=== PATIENT | female | born 1985 | race Caucasian/White ===

== ENCOUNTER → 2022-02-12 | Outpatient (CLI) | payer BC, MEDICAID, SELFPAY ==
--- NOTE | 2022-02-12 08:25 | CT_ITS ---
STUDY: CT PELVIS WITHOUT CONTRAST REASON FOR EXAM: Female, 36 years old. SACROCOCCYGEAL DISORDERS RADIATION DOSAGE (If Supplied By Facility): CTDIvol = ( 5.37 ) mGy, DLP = ( 170.50 ) mGycm TECHNIQUE: Transaxial imaging of the pelvis was performed with oral contrast, and without intravenous administration of contrast material. Individualized dose optimization techniques were used for this CT. COMPARISON: None. FINDINGS: Normal urinary bladder. There is a 4.9 cm x 4.3 cm mass in the right ovary containing fat, soft tissue and calcification. This is suggestive of a dermoid cyst. A similar. Mass is seen in the left adnexa measuring 3.8 sinus by 5 cm. Findings are in keeping with bilateral ovarian dermoids. Normal visualized small intestine. Normal visualized colon. There is no pelvic fluid. Normal visualized pelvic arteries. Small umbilical hernia containing fat. Normal osseous structures. CT/Pelvis without IV Contrast IMPRESSION: Bilateral ovarian dermoids as described. Electronically Signed: Zana Magana MD at 9:24 EDT ,
== END | disposition home or self-care (01) ==
PROVIDERS: PCP Orthopaedic Surgery; Referring Provider Orthopaedic Surgery; Visit Provider Orthopaedic Surgery
DX: K42.9 Umbilical hernia without obstruction or gangrene (principal); S30.0XXA Contusion of lower back and pelvis, initial encounter; M53.3 Sacrococcygeal disorders, not elsewhere classified
CPT/HCPCS: 72192

== ENCOUNTER 2022-09-14 10:27 | Emergency (ER) | payer OTHER, MEDICAID, SELFPAY ==
[2022-09-14 10:28] VITALS: BP 142/91; PULSE 95; RESP 18; TEMP 36.4; O2SAT 100; BMI 25.9
--- NOTE | 2022-09-14 11:57 | EX.ED.DYSGE1 ---
HPI History of Present Illness Chief Complaint: Ear Problem Detail of Chief Complaint: Decreased hearing left ear Informant: patient Narrative Narrative: Patient with 3-day history of decreased hearing to her left ear. She denies fever or chills or sweats. She denies cough or significant sore throat. Patient thinks that maybe she has wax occlusion. She denies any drainage from the ear. She denies trauma to her ear. Prior similar symptoms: No PFSH PFSH Medical History no medical history Allergy/AdvReac Type Severity Reaction Status Date / Time No Known Allergies Allergy Verified 09/14/22 10:30 Social History Smoking Status: Unknown if ever smoked ROS ROS ED Review of Systems ROS Unobtainable: other Constitutional Constitutional ED: Reports lethargy; Denies chills, fever(s), sweats or weight loss Eyes Eyes: Denies blurry vision, change in vision or diplopia ENT ENT ED: Reports other Details: Decreased hearing left ear, mild left ear discomfort ; Denies rhinorrhea or sore throat Cardiovascular Cardiovascular: Denies chest pain, orthopnea or racing heartbeat Respiratory/Chest Respiratory/Chest: Denies cough, dyspnea, dyspnea on exertion, orthopnea or sputum Gastrointestinal Gastrointestinal: Denies abdominal pain, diarrhea, nausea or vomiting Genitourinary Genitourinary ED: Denies dysuria, hematuria or urinary frequency Musculoskeletal Musculoskeletal: Denies arthralgias, back pain, myalgias or neck pain Integumentary Denies abscess, Abrasions or rash Neurologic Neurologic: Denies headache(s) or weakness Psychiatric Psychiatric: Denies anxiety, depression or suicidal thoughts Endocrine Endocrinology: Denies polydipsia, polyphagia or polyuria Hematologic/Lymphatic Hematologic/Lymphatic: Denies easy bleeding, easy bruising or lymphadenopathy Allergic/Immunologic Allergic/Immunologic ED: Denies mouth swelling, tongue swelling or urticaria EXAM Physical Exam Const Vital Signs: 09/14/22 10:28 Temperature 97.5 F L Temperature Source Temporal Pulse Rate 95 Respiratory Rate 18 Blood Pressure 142/91 H Blood Pressure Mean 108 Pulse Ox 100 Oxygen Delivery Method Room Air Positive well nourished and well developed General Appearance ED: well developed and NAD HEENT Reports moist mucous membranes HEENT Narrative: Patient has complete cerumen impaction of the left ear canal and I am unable to visualize the tympanic membrane. Patient also with significant cerumen impaction on the right. normocephalic and atraumatic; Negative for trauma or tenderness Eyes PERRL and EOMs intact bilaterally General Eye ED: Negative for pale conjunctiva or scleral icterus Neck no lymphadenopathy, supple and no JVD General: Negative for tenderness Chest Wall inspection of chest normal and palpation of chest normal Chest: Negative for tenderness Resp normal respiratory effort and clear to auscultation bilaterally Effort and Inspection: Negative for respiratory distress or pain with movement Auscultation: Negative for rhonchi, wheezes or diminished lung sounds Cardio regular rate, regular rhythm, S1 normal heart sound, S2 normal heart sound and no murmurs Peripheral Pulses: pulses 2+ throughout GI normal to inspection, nondistended, normoactive bowel sounds, soft to palpation, non-tender, non-distended and no masses Back/Spine no CVA tenderness and no thoracic nor lumbar tenderness Extremity normal to inspection General Extremety ED: Negative for edema General Extremity: Negative for edema Neuro oriented x3, CN's II-XII intact bilaterally, no sensory deficits noted and gait normal Sensorium / Orientation: awake, alert, oriented to person, oriented to place and oriented to time Motor Exam: strength 5/5 throughout and strength abnormal Psych mental status grossly normal Skin no rashes or lesions noted and no wounds MDM MDM MDM Narrative Medical decision making narrative: Patient with cerumen impaction which I suspect is causing her decreased hearing. Patient was seen in the [facility] bed as the emergency department is very busy and no beds are available at this time. I attempted to use an ear curette to remove some of the impaction and was only able to get small amounts out and patient had a hard time tolerating. After my last attempt to remove wax I did reevaluate the ear canal and there was no evidence of trauma to the ear canal. The cerumen impaction persists. At this time I offered to let her wait until we could have a room available where she could have some softening agent such as Debrox and irrigation of the ear canal but I did not know how long this would take. Patient would prefer to follow-up with ENT and she will go to the pharmacy and get Debrox and attempt possible irrigation at home. Patient does not want to wait. Discharge Plan Triage Chief Complaint: Ear Problem ED Provider: Faviola Hair Dx/Rx/DC Orders Clinical Impression: Cerumen impaction Instructions: Impacted Earwax Primary Care Provider: Care Physician,Luly Primary Referrals: Jose Rodriguez MD [Med Staff - Active Staff] - 3-5 Days Care Physician,No Primary [Primary Care Provider] - Disposition Disposition: Home, Self Care
== END 2022-09-14 12:08 | disposition home or self-care (01) ==
PROVIDERS: Emergency Provider Emergency Medicine; Visit Provider Emergency Medicine
DX: H61.22 Impacted cerumen, left ear (principal)
CPT/HCPCS: 99282